=== PATIENT | male | born 1975 | race Caucasian/White ===

== ENCOUNTER 2017-08-04 01:23 | Emergency (ER) | payer SELFPAY ==
[2017-08-04] MEDS ORDERED: Ondansetron HCl/PF 4 MG/2 ML Vial ONE (01:48)
[2017-08-04] MEDS ORDERED: Acetaminophen 500 MG TAB ONE (01:48)
[2017-08-04] MEDS ORDERED: Ketorolac Tromethamine 30 MG/ML VIAL ONE (01:48)
[2017-08-04 02:35] LABS: ALT (SGPT) 86 U/L (8-55); AST (SGOT) 88 U/L (5-34); Albumin 3.7 g/dL (3.5-5.0); Alkaline Phosphatase 165 U/L (40-150); Anion Gap 18 mmol/L (10-20); Bilirubin, Total 0.7 mg/dL (0.2-1.2); Calc. Creatinine Clearance 0 mL/min (70-130); Calcium 8.7 mg/dL (7.8-10.44); Chloride 108 mmol/L (98-107); Estimated GFR-MDRD 24; Globulin 3.4 g/dL (2.4-3.5); Glucose 95 mg/dL (70-105); Potassium 3.9 mmol/L (3.5-5.1); Protein, Total 7.1 g/dL (6.0-8.3); Sodium 142 mmol/L (136-145)
[2017-08-04 02:41] LABS: CKMB 1.8 ng/mL (0-6.6); Troponin I Less than 0.010 ng/mL (< 0.028)
[2017-08-04 02:42] LABS: Bilirubin Negative (Negative); Blood, Urine Negative (Negative); Clarity Clear (Clear); Glucose, Urine (Dipstick) Negative (Negative); Leukocyte Negative (Negative); Nitrite Negative (Negative); Protein, Urine (Dipstick) 100 mg/dL (Neg-Trace); Urobilinogen 0.2 mg/dL (0.2-1.0)
[2017-08-04 02:49] LABS: BUN (Urea Nitrogen) 45 mg/dL (8.9-20.6); Carbon Dioxide 20 mmol/L (22-29); Hemoglobin 15.4 g/dL (14.0-18.0); Lipase 33 U/L (8-78); Mean Corpuscular HGB CONC 33.8 g/dL (32.0-36.0); Mean Corpuscular Volume 91.8 fl (80.0-94.0); Mean Platelet Volume 8.3 fL (7.4-10.4); Platelet Count 245 thou/uL (130-400); RBC Distribution Width 12.2 % (11.5-14.5); Red Blood Cell (RBC) Count 4.95 mill/uL (4.70-6.10); White Blood Cell (WBC) Count 14.1 thou/uL (4.8-10.8)
[2017-08-04 02:51] LABS: Amphetamine Detected (NotDetected); Barbiturates Screen Not Detected (NotDetected); Benzodiazepine Screen Not Detected (NotDetected); Cocaine Metabolite Screen Not Detected (NotDetected); Medtox Control Line Valid? VALID (VALID); Methadone Not Detected (NotDetected); Methamphetamine Detected (NotDetected); Opiate Screen Detected (NotDetected); Oxycodone Screen Not Detected (NotDetected); Phencyclidine (PCP) Not Detected (NotDetected); RBC/HPF 0-3 HPF (0-3); Renal Epithelial 0-3 HPF (0-3); THC/Cannabinoid Screen Not Detected (NotDetected); Transitional Epithelial 0-3 HPF (0-3); Tricyclic Screen Not Detected (NotDetected); WBC/HPF 0-3 HPF (0-3)
[2017-08-04 02:52] LABS: Bacteria/HPF Rare-Few HPF (None Seen)
[2017-08-04 02:53] LABS: Band 12 % (5-11); Lymphocytes 8 % (21-51); MDiff Complete? YES; Neutrophil 80 % (42-75)
[2017-08-04] MEDS ORDERED: Levofloxacin 500 mg/D5W 100 ml Premix Bag ONE (03:55)
[2017-08-04] MEDS ORDERED: Sodium Chloride 0.9% 1,000 ML BAG ONE (07:05)
--- NOTE | 2017-08-04 07:54 | CT ---
PRELIMINARY REPORT/[facility]/EMERGENCY AFTER HOURS PROCEDURE: EXAM: CT Abdomen and Pelvis Without Intravenous Contrast CLINICAL HISTORY: 41 years old, male; Pain; Abdominal pain; Flank; Other: Carlos. Flank pain; Patient HX: Pt complaining of carlos. Flank pain. R/O stone TECHNIQUE: Axial computed tomography images of the abdomen and pelvis without intravenous contrast. COMPARISON: No relevant prior studies available. FINDINGS: Lower thorax: No acute findings. ABDOMEN: Liver: Normal. Gallbladder and bile ducts: Normal. Pancreas: Normal. Spleen: Normal. Adrenals: Normal. Kidneys and ureters: Moderate bilateral perinephric fat stranding, which is a nonspecific finding, b ut can be seen with urinary tract infection or possibly prior obstruction. Stomach and bowel: Normal. Appendix: No findings to suggest acute appendicitis. PELVIS: Bladder: Normal. Reproductive: Normal as visualized. ABDOMEN and PELVIS: Intraperitoneal space: Normal. No free air. No significant fluid collection. Bones/joints: No acute fracture. No dislocation. Soft tissues: Small fat containing umbilical hernia. Vasculature: Phleboliths within the pelvis. No abdominal aortic aneurysm. Lymph nodes: Normal. IMPRESSION: 1. Moderate bilateral perinephric fat stranding, which is a nonspecific finding, but can be seen wit h urinary tract infection or possibly prior obstruction. 2. Incidental/non-acute findings are described above. Thank you for allowing us to participate in the care of your patient. Dictated and Authenticated by: Jorge Millan MD 08/04/2017 3:40 AM Central Time ([place] \T\ [place]) FINAL REPORT EMERGENT AFTER HOURS NONCONTRAST CT ABDOMEN AND PELVIS: DATE: 08/04/17. HISTORY: Bilateral flank pain. COMPARISON: 11/21/09. IMPRESSION: 1. No renal or ureteral calculi are seen bilaterally. 2. Nonspecific symmetric moderate bilateral perinephric stranding. This can be seen with urinary t ract infection. Correlation with urinalysis is suggested. There is no evidence of hydronephrosis. 3. Findings are in agreement with the preliminary report by [facility]. POS: [facility]
== END 2017-08-04 05:00 | disposition short-term general hospital (02) ==
LOC: MADERS 01:23
DX: N12 Tubulo-interstitial nephritis, not specified as acute or chronic (principal); R74.8 Abnormal levels of other serum enzymes; I48.91 Unspecified atrial fibrillation; I10 Essential (primary) hypertension; F41.9 Anxiety disorder, unspecified; F32.9 Major depressive disorder, single episode, unspecified; F17.210 Nicotine dependence, cigarettes, uncomplicated; Z79.899 Other long term (current) drug therapy; Z86.73 Personal history of transient ischemic attack (TIA), and cerebral infarction without residual deficits
CPT/HCPCS: 36415; 74176; 80053; 80306; 81003; 81015; 82553; 83605; 83690; 84484; 85025; 87040; 87086; 93005; 96361; 96365; 96375; J1885; J1956; J2405; J7050

== ENCOUNTER → 2018-02-16 | Emergency (ER) | payer SELFPAY ==
[~2018-02-16] MED LIST: HYDROcodone/Acetaminophen 10/325 mg Tablet ONE; Naproxen 500 MG TAB ONE
--- NOTE | 2018-02-16 21:53 | RAD ---
FOUR VIEWS OF THE RIGHT ELBOW 02/16/18 COMPARISON: None. HISTORY: Pain. FINDINGS: No elbow joint effusion. No displaced fracture or dislocation. There is osteophyte formation at the l evel of the coronoid process. IMPRESSION: No acute findings. POS: [facility]
== END ==
LOC: MADERS 20:49
DX: S53.401A Unspecified sprain of right elbow, initial encounter (principal); I48.91 Unspecified atrial fibrillation; F41.9 Anxiety disorder, unspecified; F32.9 Major depressive disorder, single episode, unspecified; F17.210 Nicotine dependence, cigarettes, uncomplicated; I10 Essential (primary) hypertension; E78.00 Pure hypercholesterolemia, unspecified; Z79.899 Other long term (current) drug therapy; Z86.73 Personal history of transient ischemic attack (TIA), and cerebral infarction without residual deficits; W22.8XXA Striking against or struck by other objects, initial encounter

== ENCOUNTER 2018-04-26 19:47 | Emergency (ER) | payer SELFPAY ==
[2018-04-26 20:12] LABS: Bilirubin Negative (Negative); Blood, Urine Negative (Negative); Clarity Clear (Clear); Glucose, Urine (Dipstick) Negative (Negative); Leukocyte Negative (Negative); Nitrite Negative (Negative); Protein, Urine (Dipstick) 100 mg/dL (Neg-Trace); Urobilinogen 0.2 mg/dL (0.2-1.0)
[2018-04-26] MEDS ORDERED: Ibuprofen 800 MG TAB ONE (20:12)
[2018-04-26] MEDS ORDERED: Acetaminophen 500 MG TAB ONE (20:12)
[2018-04-26 20:15] LABS: Bacteria/HPF None Seen HPF (None Seen); RBC/HPF 0-3 HPF (0-3); Squamous Epithelial 0-3 HPF (0-3); WBC/HPF 0-3 HPF (0-3)
[2018-04-26] MEDS ORDERED: Oseltamivir 75 MG CAP ONE (20:51)
== END 2018-04-26 21:00 | disposition home or self-care (01) ==
LOC: MADERS 19:47
DX: R50.9 Fever, unspecified (principal); I25.2 Old myocardial infarction; I48.91 Unspecified atrial fibrillation; I10 Essential (primary) hypertension; Z86.73 Personal history of transient ischemic attack (TIA), and cerebral infarction without residual deficits; E78.00 Pure hypercholesterolemia, unspecified; F41.9 Anxiety disorder, unspecified; F32.9 Major depressive disorder, single episode, unspecified; F17.220 Nicotine dependence, chewing tobacco, uncomplicated; Z79.899 Other long term (current) drug therapy
CPT/HCPCS: 81003; 81015; 87804; 99283

== ENCOUNTER 2022-11-22 16:20 | Emergency (ER) | payer BC, SELFPAY ==
[2022-11-22] MEDS ORDERED: Ibuprofen 800 MG TAB ONE ×2 (16:56→17:05)
== END 2022-11-22 17:41 | disposition home or self-care (01) ==
LOC: MADERS 16:20
DX: L03.115 Cellulitis of right lower limb (principal); I10 Essential (primary) hypertension; E78.00 Pure hypercholesterolemia, unspecified; F17.210 Nicotine dependence, cigarettes, uncomplicated